=== PATIENT | male | born 1990 | race Caucasian/White ===

== ENCOUNTER 2019-07-09 08:57 | Day surgery (SDC) | payer MEDICAID ==
[2019-07-06 14:20] LABS: BASOPHILS % (AUTO) 0.6 % (0-1); EOSINOPHILS # (AUTO) 0.1 X10'3 (0-0.9); EOSINOPHILS % (AUTO) 1.3 % (0-6); LYMPHOCYTES # (AUTO) 1.9 X10'3 (1.1-4.8); LYMPHOCYTES % (AUTO) 29.6 % (21-51); MEAN CORPUSCULAR HEMOGLOBIN 31.1 PG (27.0-31.0); MEAN CORPUSCULAR HGB CONC 35.1 g/dL (33.0-36.5); MEAN CORPUSCULAR VOLUME 88.6 FL (78-98); MEAN PLATELET VOLUME 7.3 FL (7.4-10.4); MONOCYTES # (AUTO) 0.5 X10'3 (0-0.9); MONOCYTES % (AUTO) 7.3 % (2-12); NEUTROPHILS # (AUTO) 3.9 X10'3 (1.8-7.7); NEUTROPHILS % (AUTO) 61.2 % (42-75); PRE OP HEMOGLOBIN 16.8 g/dL (14.0-17.9); PRE OP PLATELET COUNT 337 X10'3 (140-440); RED BLOOD COUNT 5.42 X10'6 (4.70-6.10)
[2019-07-06 14:26] LABS: CLARITY,URINE CLEAR (Clear); COLOR,URINE YELLOW (Yellow); GLUCOSE, URINE NEGATIVE (Neg); KETONES,URINE NEGATIVE (Neg); LEUKOCYTE ESTERASE ,URINE NEGATIVE (Neg); NITRITES, URINE NEGATIVE (Neg); OCCULT BLOOD,URINE NEGATIVE (Neg); PH,URINE 6.5 (4.8-8.0); PROTEIN,URINE NEGATIVE (Neg); UROBILINOGEN,URINE 0.2 E.U/dL (0.2-1.0)
[2019-07-06 14:28] LABS: UA COLLECTION TYPE VOIDED
[2019-07-06 14:35] LABS: ALBUMIN/GLOBULIN RATIO 1.1 (1.1-1.5); ALKALINE PHOSPHATASE 57 IU/L (46-116); BLOOD UREA NITROGEN 15 MG/DL (7-18); BUN/CREATININE RATIO 13.4 (5.4-32.0); CALCIUM 9.1 MG/DL (8.5-10.1); CHLORIDE 107 MMOL/L (99-107); CREATININE 1.12 MG/DL (0.60-1.10); PRE OP ANION GAP 3 (8-16); PRE OP AST 32 U/L (10-37); PRE OP BILIRUB, TOTAL 0.5 MG/DL (0.0-1.0); PRE OP GLUCOSE 66 MG/DL (70-104); PRE OP POTASSIUM 3.6 MMOL/L (3.4-5.1); PRE OP SODIUM 145 MMOL/L (135-145); TOTAL CARBON DIOXIDE 34.7 MMOL/L (24-32); TOTAL PROTEIN 7.6 G/DL (6.4-8.2); eGFR 77 ML/MIN
[2019-07-06 14:38] LABS: PRE OP ALT 132 U/L (30-65)
[2019-07-09] VITALS (12 sets, daily range): BP systolic 117–157; BP diastolic 62–99
[~2019-07-09] VITALS: Ht 165.1 cm; Wt 68.9 kg
[~2019-07-09 08:57] MED LIST: NO HOME MEDS
[2019-07-09] MEDS ORDERED: BUPIVAcaine/PF 2.5mg/ml (0.25%) 10ml vial ONE ×2 (09:10→11:02)
[2019-07-09] MEDS ORDERED: BUPIVACAINE liposomal/PF 13.3 MG/ML vial IM ONE (09:10)
[2019-07-09] MEDS ORDERED: ceFAZolin 1000mg inj ONE (09:10)
[2019-07-09] MEDS ORDERED: cefazolin/dext.iso 2gm/100 ML IV ONE (09:45)
[2019-07-09] MEDS ORDERED: famotidine 20mg tablet PO ONE (09:45)
[2019-07-09] MEDS ORDERED: ringers solution, lacted 1,000 ML IV SCH ×2 (09:45→11:22)
[2019-07-09] MEDS ORDERED: midazolam 2 mg/2 ml injection ONE (10:42)
[2019-07-09] MEDS ORDERED: fentaNYL/PF 50MCG/1 ML 2ML syringe ONE (10:42)
[2019-07-09] MEDS ORDERED: propofol inj 20 ML IV ONE (10:42)
[2019-07-09] MEDS ORDERED: meperidine/PF 25mg/ml syringe IV PRN ×3 (11:25)
[2019-07-09] MEDS ORDERED: proCHLORperazine 10 MG/2 ml inj IV PRN (11:25)
[2019-07-09] MEDS ORDERED: ondansetron/PF 4mg/2ml inj IV PRN (11:25)
[2019-07-09] MEDS ORDERED: morphine 4 MG/ML inj SYRINge IV PRN ×2 (11:25)
[2019-07-09] MEDS ORDERED: dexamethasone sod phosphate 4mg/ml inj. ONE (11:42)
--- NOTE | 2019-07-09 12:11 | NUR ---
Received from OR via [facility], accompanied by Anesthesiologist DR BDEOLLA and report given by Anesthesiologist. PT VERY DROWSY, NO S/S OF DISTRESS/DISCOMFORT, ABDOMEN W/FOAM TAPE COVERING INCISION CDI. Addendum: 07/09/19 at 1227 by Doretha Capone RN Amended: Links added.
[2019-07-09] MEDS ORDERED: ketorolac trometh. 30mg/ml inj. IV ONE (12:30)
[2019-07-09] MEDS ORDERED: acetaminophen 1,000mg/100ml IV 100 ML IV ONE (12:30)
--- NOTE | 2019-07-09 13:51 | NUR ---
PT D/C INSTRUCTIONS GIVEN AND GONE OVER W/PT, VERBALIZES UNDERSTANDING, PT D/CD TO HOME TO HOME VIA W/C TO PRIVATE VEHICLE W/O INCIDENT. Addendum: 07/09/19 at 1433 by Doretha Capone RN Amended: Links added.
== END 2019-07-09 13:51 | disposition home or self-care (01) ==
LOC: PAS 08:57
PROVIDERS: ATTEND Surgery
DX: K40.90 Unilateral inguinal hernia, without obstruction or gangrene, not specified as recurrent (principal); Z87.891 Personal history of nicotine dependence; Z79.899 Other long term (current) drug therapy
CPT/HCPCS: 36415; 49505; 80053; 81003; 82948; 85025; 93005; C1781; C9290; J0131; J0690; J1100; J1885; J2175; J2250; J2704; J3010; J3490; A4215; A4618; A6449; A7000; J7120

== ENCOUNTER 2021-11-05 20:39 | Emergency (ER) | payer MEDICAID ==
[~2021-11-05] VITALS: Ht 170.2 cm; Wt 65.9 kg
[2021-11-05 21:54] VITALS: BP 148/90
--- NOTE | 2021-11-05 21:54 | NUR ---
POLICE AT BEDSIDE, DR SONG AT BEDSIDE
--- NOTE | 2021-11-05 22:04 | NUR ---
PT REFUSES TO GIVE URINE SAMPLE, AWARE, OK FOR D/C
== END 2021-11-05 22:15 ==
LOC: ER 20:39
DX: Z04.1 Encounter for examination and observation following transport accident (principal); Z72.89 Other problems related to lifestyle
CPT/HCPCS: 71045; 93005; 99283